=== PATIENT | female | born 1995 | race Caucasian/White ===

== ENCOUNTER 2018-11-29 22:09 | Emergency (ER) | payer SELFPAY ==
[2018-11-29] MEDS ORDERED: NORMAL SALINE 1000 ML 1,000 ML IV ONE (22:20)
--- NOTE | 2018-11-29 22:20 | ER Document Report ---
Addendum entered and electronically signed by MITZY COELLO MD 12/01/18 09:37: Discharge - Discharge Clinical Impression: Suicide attempt, Substance abuse Overdose Qualifiers: Encounter type: initial encounter Injury intent: intentional self-harm Qualified Code(s): T50.902A - Poisoning by unspecified drugs, medicaments and biological substances, intentional self-harm, initial encounter Condition: Stable Disposition: HOME, SELF-CARE Additional Instructions: You have been evaluated both medical and behavioral health teams and been deemed appropriate for discharge. You highly encouraged to follow-up with both mental health and substance use treatment. You have been provided a resource list of area providers including mobile crisis contact information. NARCOTIC / OPIOD ABUSE: Narcotics and opiods are pain-relieving drugs that are often abused. They are addicting. Narcotics cause euphoria, but it often takes increasing amounts to "feel good" and avoid withdrawal symptoms. Overdose of narcotics causes small pupils, coma, and decreased breathing. It's a common cause of . Purity of street narcotics is unpredictable. Injection of narcotics is risky for abscesses, endocarditis (heart infection), pneumonia, and AIDS. Withdrawal from narcotics causes goose bumps, watery mouth, sweating, nasal congestion, muscle aches, abdominal cramps, vomiting, and diarrhea. There's often restlessness and confusion. Treatment programs are available, but you must make the decision to quit. Medication (such as clonidine) can be prescribed to control the symptoms of withdrawal. DEPRESSION: Your evaluation reveals that you have mental depression. While symptoms may be vague, they often include disturbance of sleep, fatigue, loss of appetite, and general loss of interest in life. While depression may be a side effect of drugs, or a reaction to a major change in your life, many cases have no known cause. If depression is acute, and related to a major loss in your life, you can expect it to clear completely with time. If you have been depressed a long ti me, are prone to repeated bouts of depression or low mood, or have been thinking of suicide, get help. Depression can be treated with anti-depressant medication and counselling. Long-term depression will often take a few weeks to clear, even with appropriate medication. Follow-up care is important. SUICIDAL IDEATION: Suicidal ideation is a common medical term for thoughts about suicide, which may be as detailed as a formulated plan, without the suicidal act itself. Although most people who undergo suicidal ideation do not commit suicide, some go on to make suicide attempts. The range of suicidal ideation varies greatly from fleeting to detailed planning, role playing, and unsuccessful attempts. While thoughts about suicide are common, most people do not carry out serious actions to commit suicide. Based upon your evaluation and discussion with you, we do not believe you are currently at risk to act upon your thoughts of suicide. You have agreed to return to the Emergency Department, at any time, if you feel inclined to act upon your suicidal thoughts. FOLLOW-UP CARE: If you have been referred to a physician for follow-up care, call the physicians office for an appointment as you were instructed or within the next two days. If you experience worsening or a significant change in your symptoms, notify the physician immediately or return to the Emergency Department at any time for re-evaluation. Referrals: [facility] [Outside] - Follow up as needed Addendum entered and electronically signed by ZACHARY CHUN LCSWA 12/01/18 07:43: Discharge - Discharge Clinical Impression: Suicide attempt, Substance abuse Overdose Qualifiers: Encounter type: initial encounter Injury intent: intentional self-harm Qualified Code(s): T50.902A - Poisoning by unspecified drugs, medicaments and biological substances, intentional self-harm, initial encounter Condition: Stable Disposition: HOME, SELF-CARE Additional Instructions: You have been evaluated both medical and behavioral health teams and been deemed appropriate for discharge. You highly encouraged to follow-up with both mental health and substance use treatment. You have been provided a resource list of area providers including mobile crisis contact information. NARCOTIC / OPIOD ABUSE: Narcotics and opiods are pain-relieving drugs that are often abused. They are addicting. Narcotics cause euphoria, but it often takes increasing amounts to "feel good" and avoid withdrawal symptoms. Overdose of narcotics causes small pupils, coma, and decreased breathing. It's a common cause of . Purity of street narcotics is unpredictable. Injection of narcotics is risky for abscesses, endocarditis (heart infection), pneumonia, and AIDS. Withdrawal from narcotics causes goose bumps, watery mouth, sweating, nasal congestion, muscle aches, abdominal cramps, vomiting, and diarrhea. There's often restlessness and confusion. Treatment programs are available, but you must make the decision to quit. Medication (such as clonidine) can be prescribed to control the symptoms of withdrawal. DEPRESSION: Your evaluation reveals that you have mental depression. While symptoms may be vague, they often include disturbance of sleep, fatigue, loss of appetite, and general loss of interest in life. While depression may be a side effect of drugs, or a reaction to a major change in your life, many cases have no known cause. If depression is acute, and related to a major loss in your life, you can expect it to clear completely with time. If you have been depressed a long time, are prone to repeated bouts of depression or low mood, or have been thinking of suicide, get help. Depression can be treated with anti-depressant medication and counselling. Long-term depression will often take a few weeks to clear, even with appropriate medication. Follow-up care is important. SUICIDAL IDEATION: Suicidal ideation is a common medical term for thoughts about suicide, which may be as detailed as a formulated plan, without the suicidal act itself. Although most people who undergo suicidal ideation do not commit suicide, some go on to make suicide attempts. The range of suicidal ideation varies greatly from fleeting to detailed planning, role playing, and unsuccessful attempts. While thoughts about suicide are common, most people do not carry out serious actions to commit suicide. Based upon your evaluation and discussion with you, we do not believe you are currently at risk to act upon your thoughts of suicide. You have agreed to return to the Emergency Department, at any time, if you feel inclined to act upon your suicidal thoughts. FOLLOW-UP CARE: If you have been referred to a physician for follow-up care, call the physicians office for an appointment as you were instructed or within the next two days. If you experience worsening or a significant change in your symptoms, notify the physician immediately or return to the Emergency Department at any time for re-evaluation. Referrals: [facility] [Outside] - Follow up as needed Original Note: ED General - General Stated Complaint: POSSIBLE OVERDOSE Time Seen by Provider: 11/29/18 22:19 Notes: Patient is a 22-year-old female that presents to the emergency department for chief complaint of intentional overdose. Patient states that she took a handful of 1 mg Xanax tablets a few hours ago, she took this in attempt of suicide, she states that she is been an addict since she was 16 years old, due to trauma in her life, and was at a [employer] this evening and around other people, and apparently she went to another room and took the pills she estimates about 15 of them, and her friend found her and told her what happened, she was confused, and somnolent, but arousable. She states that she used heroin yesterday, but denies using any cocaine, methamphetamines or other drugs today. She denies any alcohol use, denies taking any [id number] medications. She states that she has been very stressed recently, denies homicidal thoughts or hallucinations. Past Medical History: Substance abuse, anxiety, depression Past Surgical History: Denies surgical history Social History: Admits to smoking cigarettes, denies alcohol use, admits to using heroin, and Xanax that is not prescribed Family History: Reviewed and noncontributory for presenting illness Allergies: Reviewed, see documented allergy list. REVIEW OF SYSTEMS: Other than noted above, the 12 point review of systems was reviewed with the patient and were negative, all pertinent findings are included in the HPI. PHYSICAL EXAMINATION: Vital signs reviewed, nursing noted reviewed. GENERAL: Patient is somnolent but arousable and answering questions appropriately HEAD: Atraumatic, normocephalic. EYES: Eyes appear normal, extraocular movements intact, sclera anicteric, conjunctiva are normal. ENT: nares patent, oropharynx clear without exudates. Moist mucous membranes. NECK: Normal range of motion, supple without lymphadenopathy LUNGS: Breath sounds clear to auscultation bilaterally and equal. No wheezes rales or rhonchi. HEART: Regular rate and rhythm without murmurs ABDOMEN: Soft, nontender, normoactive bowel sounds. No rebound, guarding, or rigidity. No masses appreciated. EXTREMITIES: Nontender, good range of motion, no pitting or edema. Tract borrego noted in the extremities NEUROLOGICAL: No focal neurological deficits. Moves all extremities spontaneously Motor and sensory grossly intact on exam. PSYCH: Tearful on exam, poor eye contact SKIN: Warm, Dry, normal turgor, no rashes or lesions noted on exposed skin - Related Data Allergies/Adverse Reactions: No Known Allergies Allergy (Unverified 11/29/18 23:10) Past Medical History - Social History Smoking Status: Current Every Day Smoker Family History: Reviewed & Not Pertinent Physical Exam - Vital signs Vitals: Pulse Resp BP Pulse Ox 120 H 24 H 118/87 H 100 11/29/18 22:14 11/29/18 22:14 11/29/18 22:14 11/29/18 22:14 Course - Re-evaluation Re-evalutation: Patient seen and examined, vital signs reviewed. Medical screening testing was ordered including bloodwork, EKG, and toxicology. Patient was given a liter of IV fluids. Results of testing were reviewed. Testing demonstrated unremarkable blood work, negative for salicylates or acetaminophen, alcohol negative. Patient has been stable from a hemodynamic standpoint. Resting comfortably in bed, IVC paperwork was filled out and submitted for petition. At this point I feel that the patient is medically cleared and can be further evaluated from a psychiatric standpoint for final disposition from the emergency department. Patient updated on plan of care. - Vital Signs Vital signs: Temp Pulse Resp BP Pulse Ox 120 H 24 H 118/87 H 100 11/29/18 22:14 11/29/18 22:14 11/29/18 22:14 11/29/18 22:14 - Laboratory Result Diagrams: 11/29/18 23:05 11/29/18 23:05 Laboratory results interpreted by me: 11/29/18 23:05 Calcium 10.7 H AST 61 H Salicylates < 1.0 L Acetaminophen < 10 L - EKG Interpretation by Me Additional EKG results interpreted by me: EKG demonstrates sinus tachycardia with a ventricular rate of 130 bpm, normal axis, QTC slightly prolonged at 472 ms no evidence of acute ischemia, no prior for comparison. Discharge - Discharge Clinical Impression: Suicide attempt Overdose Qualifiers: Encounter type: initial encounter Injury intent: intentional self-harm Qualified Code(s): T50.902A - Poisoning by unspecified drugs, medicaments and biological substances, intentional self-harm, initial encounter Condition: Stable Disposition: PSYCH HOSP/UNIT
--- NOTE | 2018-11-29 22:44 | EKG REPORT ---
SEVERITY:- OTHERWISE NORMAL ECG - SINUS TACHYCARDIA : Confirmed by: El Casillas MD 29-Nov-2018 22:43:59
[2018-11-29 23:15] LABS: ABSOLUTE EOSINOPHILS # (AUTO) 0.1 10^3/uL (0.0-0.6); ABSOLUTE LYMPHOCYTES (AUTO) 2.7 10^3/uL (0.5-4.7); ABSOLUTE MONOCYTES (AUTO) 0.5 10^3/uL (0.1-1.4); ABSOLUTE NEUT (AUTO) 2.7 10^3/uL (1.7-8.2); BASOPHILS % (AUTO) 0.5 % (0-2); EOSINOPHILS % (AUTO) 2.5 % (0-6); HEMATOCRIT 41.8 % (36.0-47.0); HEMOGLOBIN 14.3 g/dL (12.0-15.5); LYMPHOCYTES % (AUTO) 44.3 % (13-45); MEAN CORPUSCULAR HEMOGLOBIN 28.9 pg (27.0-33.4); MEAN CORPUSCULAR HGB CONC 34.3 g/dL (32.0-36.0); MEAN CORPUSCULAR VOLUME 84 fl (80-97); MONOCYTES % (AUTO) 8.4 % (3-13); PLATELET COUNT 245 10^3/uL (150-450); RED BLOOD COUNT 4.97 10^6/uL (3.72-5.28); RED CELL DISTRIBUTION WIDTH 13.9 % (11.5-14.0); SEGMENTED NEUTROPHILS % (AUTO) 44.3 % (42-78); TOTAL CELLS COUNTED % (AUTO) 100 %
[2018-11-29 23:28] LABS: ACETAMINOPHEN < 10 ug/mL (10-30); ALANINE AMINOTRANSFERASE 41 U/L (9-52); ALBUMIN 4.6 g/dL (3.5-5.0); ALCOHOL < 10 mg/dL (NONE DETECTED); ALKALINE PHOSPHATASE 88 U/L (38-126); ANION GAP 13 (5-19); ASPARTATE AMINO TRANSFERASE 61 U/L (14-36); BILIRUBIN,DIRECT 0.4 mg/dL (0.0-0.4); BILIRUBIN,TOTAL 0.6 mg/dL (0.2-1.3); BLOOD UREA NITROGEN 17 mg/dL (7-20); CALCIUM 10.7 mg/dL (8.4-10.2); CARBON DIOXIDE 27 mmol/L (22-30); CHLORIDE 100 mmol/L (98-107); GLUCOSE 91 mg/dL (75-110); POTASSIUM 3.7 mmol/L (3.6-5.0); SALICYLATE < 1.0 mg/dL (2.0-20.0); TOTAL PROTEIN 6.9 g/dL (6.3-8.2)
--- NOTE | 2018-11-30 10:19 | ER Document Report ---
Doctor's Note Notes: 11/30/18 10:18 Patient is a 22-year-old female brought in last evening after the patient supposedly took 15 - 1 mg tablets of Xanax in an attempt to harm herself. She also states heroin the day before. Somnolent by EMS but arousable currently here and oriented x4. Labs and vital signs as recorded. Awaiting psychiatry/p sychology evaluation. 11/30/18 11:40 Psychology team will continue to evaluate. Drug screen as recorded. Urine culture has been sent. Patient denies any urinary symptoms.
[2018-11-30 10:26] LABS: APPEARANCE,URINE CLOUDY; BILIRUBIN,URINE NEGATIVE (NEGATIVE); COLOR,URINE AMBER; GLUCOSE, URINE NEGATIVE (NEGATIVE); KETONES,URINE TRACE mg/dL (NEGATIVE); LEUKOCYTE ESTERASE,URINE SMALL (NEGATIVE); NITRITE,URINE NEGATIVE (NEGATIVE); PROTEIN,URINE NEGATIVE (NEGATIVE); URINE SPECIFIC GRAVITY 1.023
[2018-11-30 10:44] LABS: URINE BARBITURATES SCREEN NEGATIVE; URINE BENZODIAZEPINES SCREEN UNCONFIRMED POSITIVE; URINE COCAINE SCREEN NEGATIVE; URINE MARIJUANA (THC) SCREEN UNCONFIRMED POSITIVE; URINE METHADONE SCREEN NEGATIVE; URINE PHENCYCLIDINE SCREEN NEGATIVE
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
--- NOTE | 2018-12-01 09:48 | ER Document Report ---
Doctor's Note Notes: 12/01/18 09:46 Rounds: Chart reviewed and patient interviewed. Patient being evaluated for suicidal ideation and an overdose of Xanax. History of depression and opioid abuse. Patient says she no longer feels suicidal now and did not really mean to kill herself when she took the Xanax. Vital signs are all essentially normal. Lab studies were positive for opioids, amphetamines, benzos, and marijuana. Other labs were all essentially normal. Patient appears to be medically stable for transfer or discharge. Serina Schmidt MD
[2018-12-01 10:26] VITALS: BP 106/81
== END 2018-12-01 10:15 | disposition home or self-care (01) ==
LOC: ER 22:09
DX: T42.4X2A Poisoning by benzodiazepines, intentional self-harm, initial encounter (principal); R40.0 Somnolence; F17.210 Nicotine dependence, cigarettes, uncomplicated
CPT/HCPCS: 93005; 99285; 96360; 36415; 87086; 80307 ×4; 84703; 85025; 87088; 80053; 81001; 93010; J7030

== ENCOUNTER 2018-12-28 15:08 | Emergency (ER) | payer SELFPAY ==
[2018-12-28 15:21] VITALS: BP 114/69
== END 2018-12-28 17:00 | disposition left against medical advice (07) ==
LOC: ER 15:08
DX: Z53.21 Procedure and treatment not carried out due to patient leaving prior to being seen by health care provider (principal)

== ENCOUNTER 2020-02-17 22:02 | Emergency (ER) | payer SELFPAY ==
[2020-02-17] MEDS ORDERED: NORMAL SALINE 1000 ML 1,000 ML IV ONE (22:23)
[2020-02-17] MEDS ORDERED: ONDANSETRON HCL INJ/PF 4 MG/2 ML SDV IV ONE (22:23)
--- NOTE | 2020-02-17 22:25 | ER Document Report ---
ED GI/ - General Chief Complaint: Vomiting Stated Complaint: VOMITING,MUSCLE ACHES,CHILLS Time Seen by Provider: 02/17/20 22:12 Notes: Patient is a 24-year-old female that comes emergency department for chief complaint of vomiting for the past 2 days. She states that she has some generalized abdominal pain and waves of nausea. She states she vomited 5 times today. She denies abnormal bowel movements, fever, chills, flank pain, vaginal bleeding or discharge, chest pain, headache. She states she was called by the health department 1 month ago and was told she was positive for "either gonorrhea or chlamydia, I am not sure". She has not sought treatment for this. She does admit to IV drug abuse with heroin. She denies any diagnosed medical history or daily medications. She also states that her last menstrual cycle was over a month ago when she might be . TRAVEL OUTSIDE OF THE [place] IN LAST 30 DAYS: No - Related Data Allergies/Adverse Reactions: No Known Allergies Allergy (Unverified 11/29/18 23:10) Past Medical History - General Information source: Patient - Social History Smoking Status: Current Every Day Smoker Frequency of alcohol use: Occasional Drug Abuse: Heroin Lives with: Friend Family History: Reviewed & Not Pertinent Renal/ Medical History: Denies: Hx Peritoneal Dialysis Surgical Hx: Negative - Immunizations Hx Diphtheria, Pertussis, Tetanus Vaccination: Yes Review of Systems - Review of Systems Constitutional: See HPI EENT: No symptoms reported Cardiovascular: No symptoms reported Respiratory: No symptoms reported Gastrointestinal: See HPI Genitourinary: See HPI Female Genitourinary: See HPI Musculoskeletal: No symptoms reported Skin: No symptoms reported Hematologic/Lymphatic: No symptoms reported Neurological/Psychological: No symptoms reported Physical Exam - Vital signs Vitals: Temp Pulse Resp BP Pulse Ox 98.3 F 90 18 122/76 99 02/17/20 22:20 02/17/20 22:20 02/17/20 22:20 02/17/20 22:20 02/17/20 22:20 - Notes Notes: GENERAL: Alert, interacts well. No acute distress. HEAD: Normocephalic, atraumatic. EYES: Pupils equal, round, and reactive to light. Extraocular movements intact. ENT: Oral mucosa moist, tongue midline. Oropharynx unremarkable. Airway patent. NECK: Full range of motion. Supple. Trachea midline. No lymphadenopathy. LUNGS: Clear to auscultation bilaterally, no wheezes, rales, or rhonchi. No respiratory distress. Non-tender chest wall. HEART: Regular rate and rhythm. No murmur ABDOMEN: There is some mild generalized lower abdominal tenderness, nonspecific, no guarding. Otherwise unremarkable. No distention. Bowel sounds present. GENITOURINARY: There is a moderate amount of whitish discharge with some erythema of the cervix and some tenderness with cervical motion although there is no severe CMT noted. No bleeding. No external concerning findings. Exam performed with Nayla PRABHAKAR at bedside. EXTREMITIES: Moves all 4 extremities spontaneously. No edema, normal radial and dorsalis pedis pulses bilaterally. No cyanosis. BACK: no cervical, thoracic, lumbar midline tenderness. No saddle anesthesia, normal distal neurovascular exam. Moves all extremities in full range of motion. NEUROLOGICAL: Alert and oriented x3. Normal speech. Cranial nerves II through XII grossly intact. Strength 5/5 in all extremities. PSYCH: Normal affect, normal mood. SKIN: Warm, dry, normal turgor. Course - Re-evaluation Re-evalutation: Patient is pleasant, conversational, not ill-appearing. Vital signs unremarkable. Patient is some lower abdominal tenderness, pelvic exam does show vaginal discharge and some tenderness but no severe cervical motion tenderness or concerning findings otherwise. CBC, chemistry unremarkable except for mildly elevated LFTs, test is negative. Urinalysis shows elevated specific gravity, patient was given IV fluids and Toradol. Patient significantly improved in regards to her symptoms on reevaluation. Patient is positive for chlamydia. Wet mount shows 3+ bacteria and 3+ white blood cells. Patient given Rocephin, azithromycin, Flagyl. I had a long conversation with the patient. Because of borderline LFTs with IV drug abuse history we will test patient for hepatitis. I discussed with patient the extreme dangers of IV drug abuse, she states she actually is planning to stop, I did discuss detox, decision was made to provide her with referral for the location so she can go when she desires to. She does state appreciation for this. I discussed details and return precautions at length. Patient stated understanding and agreement with plan. Patient stable and well-appearing at time of discharge. - Vital Signs Vital signs: Temp Pulse Resp BP Pulse Ox 98.3 F 86 17 100/57 L 100 02/18/20 01:45 02/18/20 01:45 02/18/20 01:45 02/18/20 01:45 02/18/20 01:45 - Laboratory Result Diagrams: 02/17/20 23:05 02/17/20 23:05 Laboratory results interpreted by me: 02/17/20 02/17/20 02/17/20 22:15 22:41 23:05 Sodium 135.1 L AST 70 H ALT 104 H Urine Protein 100 H Urine Ketones TRACE H Urine Urobilinogen 4.0 H Ur Leukocyte Esterase SMALL H Urine Ascorbic Acid 20 H Chlamydia DNA (PCR) DETECTED H Discharge - Discharge Clinical Impression: Dehydration, Chlamydia infection Abdominal pain Qualifiers: Abdominal location: generalized Qualified Code(s): R10.84 - Generalized abdominal pain Vomiting Qualifiers: Vomiting type: unspecified Vomiting Intractability: non-intractable Nausea presence: with nausea Qualified Code(s): R11.2 - Nausea with vomiting, unspecified Condition: Stable Disposition: HOME, SELF-CARE Additional Instructions: You have chlamydia, this is an STD that causes a pelvic infection. You have been treated for this. Complete the treatment by taking the Flagyl antibiotic as prescribed. Avoid sexual course for 7 days. Your partner also needs to be treated. You have pending tests for hepatitis, you will be contacted with results. Please follow-up with the detox center listed below as we discussed. Return if you worsen including severe worsening pain, development of fever, uncontrolled vomiting, or any other concerning or worsening symptoms. [facility] [address] [place] [address] , [place] [address] Hours: Open 24 hours Prescriptions: Metronidazole [Flagyl 500 mg Tablet] 500 mg PO BID 7 Days #14 tablet
[2020-02-17 22:48] LABS: APPEARANCE,URINE SLIGHTLY-CLOUDY; BILIRUBIN,URINE NEGATIVE (NEGATIVE); COLOR,URINE AMBER; GLUCOSE, URINE NEGATIVE (NEGATIVE); KETONES,URINE TRACE mg/dL (NEGATIVE); LEUKOCYTE ESTERASE,URINE SMALL (NEGATIVE); NITRITE,URINE NEGATIVE (NEGATIVE); PROTEIN,URINE 100 mg/dL (NEGATIVE)
[2020-02-17 22:58] LABS: BACTERIA (WET MOUNT) 3+ BACTERIA SEEN; RBCS (WET MOUNT) FEW RBCS SEEN; T.VAGINALIS (WET MOUNT) NO TRICHOMONAS SEEN; WBCS (WET MOUNT) 3+ WBCS SEEN; YEAST (WET MOUNT) NO YEAST SEEN
[2020-02-17 23:23] LABS: ABSOLUTE EOSINOPHILS # (AUTO) 0.2 10^3/uL (0.0-0.6); ABSOLUTE LYMPHOCYTES (AUTO) 1.6 10^3/uL (0.5-4.7); ABSOLUTE MONOCYTES (AUTO) 0.4 10^3/uL (0.1-1.4); ABSOLUTE NEUT (AUTO) 2.1 10^3/uL (1.7-8.2); BASOPHILS % (AUTO) 0.7 % (0-2); EOSINOPHILS % (AUTO) 4.5 % (0-6); HEMATOCRIT 36.8 % (36.0-47.0); HEMOGLOBIN 12.6 g/dL (12.0-15.5); MEAN CORPUSCULAR HEMOGLOBIN 29.6 pg (27.0-33.4); MEAN CORPUSCULAR HGB CONC 34.3 g/dL (32.0-36.0); MEAN CORPUSCULAR VOLUME 86 fl (80-97); MONOCYTES % (AUTO) 8.4 % (3-13); PLATELET COUNT 247 10^3/uL (150-450); RED BLOOD COUNT 4.27 10^6/uL (3.72-5.28); RED CELL DISTRIBUTION WIDTH 12.5 % (11.5-14.0); SEGMENTED NEUTROPHILS % (AUTO) 49.4 % (42-78); TOTAL CELLS COUNTED % (AUTO) 100 %; WHITE BLOOD COUNT 4.3 10^3/uL (4.0-10.5)
[2020-02-17 23:33] LABS: ALBUMIN 3.9 g/dL (3.5-5.0); ALKALINE PHOSPHATASE 72 U/L (38-126); ANION GAP 5 (5-19); ASPARTATE AMINO TRANSFERASE 70 U/L (14-36); BILIRUBIN,TOTAL 0.6 mg/dL (0.2-1.3); BLOOD UREA NITROGEN 17 mg/dL (7-20); CALCIUM 9.6 mg/dL (8.4-10.2); CARBON DIOXIDE 30 mmol/L (22-30); CHLORIDE 100 mmol/L (98-107); GLUCOSE 89 mg/dL (75-110); TOTAL PROTEIN 6.5 g/dL (6.3-8.2)
[2020-02-17] MEDS ORDERED: KETOROLAC TROMETHAMINE INJ/PF 30 MG/1 ML SDV IV ONE (23:46)
[2020-02-18 00:21] LABS: CHLAM PCR DETECTED (NOT DETECT)
[2020-02-18] MEDS ORDERED: CEFTRIAXONE INJ 250 MG VIAL IV ONE (00:39)
[2020-02-18] MEDS ORDERED: AZITHROMYCIN 250 MG TABLET PO ONE (00:39)
[2020-02-18] MEDS ORDERED: ONDANSETRON ODT 4 MG TAB (6 TAB/ER DISP) PO PRN (00:40)
[2020-02-18 01:46] VITALS: BP 100/57
[2020-02-19 08:00] LABS: HEPATITS B SURFACE ANTIGEN Negative (Negative)
[2020-02-19 09:16] LABS: HEPATITIS C VIRUS ANTIBODY >11.0 s/co ratio (0.0-0.9)
== END 2020-02-18 01:46 | disposition home or self-care (01) ==
LOC: ER 22:02
DX: A74.9 Chlamydial infection, unspecified (principal); E86.0 Dehydration; R10.84 Generalized abdominal pain; R11.2 Nausea with vomiting, unspecified; F11.10 Opioid abuse, uncomplicated; F17.200 Nicotine dependence, unspecified, uncomplicated; R10.817 Generalized abdominal tenderness
CPT/HCPCS: 99284; 96361; 96374; 36415; 87210; 83690; 84703; 85025; 80053; 81001; 87491; 87591; 80074; J1885; J2405; J7030; J0696